=== PATIENT | female | born 1970 | race Hispanic/Latino ===

== ENCOUNTER 2022-12-21 16:11 | Emergency (ER) | payer BC ==
[~2022-12-21] VITALS: Ht 154.9 cm; Wt 90.7 kg
[2022-12-21] MEDS ORDERED: TRAMADOL HCL 50 MG TABLET ONE (18:29)
[2022-12-21] MEDS ORDERED: TRAMADOL HCL 50 MG TABLET PO ONE (18:30)
[2022-12-21] MEDS ORDERED: TRAM50TA4 PO (18:48)
[2022-12-21 19:12] VITALS: BP 148/87; PULSE 87; RESP 16; O2SAT 97
== END 2022-12-21 19:16 | disposition home or self-care (01) ==
LOC: EDH 16:11
DX: S80.02XA Contusion of left knee, initial encounter (principal); W01.0XXA Fall on same level from slipping, tripping and stumbling without subsequent striking against object, initial encounter; Y93.89 Activity, other specified; Y92.89 Other specified places as the place of occurrence of the external cause; Y99.8 Other external cause status
CPT/HCPCS: 29505; 73562

== ENCOUNTER 2022-12-31 14:49 | Emergency (ER) | payer BC ==
[~2022-12-31] VITALS: Ht 154.9 cm; Wt 89.8 kg
[~2022-12-31 14:49] MED LIST: TRAM50TA4 PO
[2022-12-31] MEDS ORDERED: IBUP-2077 PO (16:14)
[2022-12-31] MEDS ORDERED: KETOROLAC 60 MG VIAL (30MG/ML) IM ONE (16:30)
[2022-12-31 17:03] VITALS: BP 168/89; PULSE 78; RESP 20; O2SAT 100
== END 2022-12-31 17:20 | disposition home or self-care (01) ==
LOC: EDH 14:49
DX: S82.142A Displaced bicondylar fracture of left tibia, initial encounter for closed fracture (principal); Z98.890 Other specified postprocedural states; X58.XXXA Exposure to other specified factors, initial encounter; Y93.89 Activity, other specified; Y92.89 Other specified places as the place of occurrence of the external cause; Y99.8 Other external cause status
CPT/HCPCS: 99284; 73562; 96372; J1885